=== PATIENT | male | born 1995 | race African-American/Black ===

== ENCOUNTER 2019-05-04 01:28 | Emergency (ER) | payer OTHER ==
[2019-05-04 01:54] VITALS: BP 113/69; PULSE 81; TEMP 98.6; BMI 32.5
--- NOTE | 2019-05-04 02:14 | PDOC ---
History of Present Illness - General Chief Complaint: Penile Drainage Stated Complaint: STI TESTING Time Seen by Provider: 05/04/19 02:03 - History of Present Illness Initial Comments: 05/04/19 02:32 The patient is a 24 year old male with no significant PMH who presents for evaluation for STI testing. The patient reports that he is sexually active with multiple partners and has been noting a strange sensation with urination. He notes that he has had STIs in the past for which he was treated. He otherwise denies fevers, chills, SOB, chest pain, nausea, vomiting, abdominal pain, burning with urination, urinary discharge, or changes with bowel movements. Past History - Past Medical History Allergies/Adverse Reactions: Allergies Allergy/AdvReac Type Severity Reaction Status Date / Time No Known Allergies Allergy Verified 05/04/19 01:53 Home Medications: Ambulatory Orders NK [No Known Home Medication] 05/04/19 - Suicide/Smoking/Psychosocial Hx Smoking History: Never smoked Have you smoked in the past 12 months: No Information on smoking cessation initiated: No Hx Alcohol Use: No Drug/Substance Use Hx: No Review of Systems - Review of Systems Comments:: 05/04/19 02:34 Constitutional: No fevers, chills, fatigue, malaise HEENT: No Rhinorrhea, nasal congestion, visual changes Cardiovascular: No chest pain, syncope, palpitations, lightheadedness Respiratory: No Cough, SOB, Hemoptysis, Gastrointestinal: No Abdominal pain, Nausea, Vomiting, Constipation, Diarrhea, Melena Genitourinary: No Dysuria, Frequency, Urgency, Hesitancy, Hematuria, Flank pain Musculoskeletal: No Myalgia, arthralgia Skin: No rashes, itching, bruising, pallor Neurologic: No Headache, Dizziness, Numbness, Weakness, or Tingling Psychiatric: No Hallucinations. No SI or HI *Physical Exam - Vital Signs Last Vital Signs Temp Pulse Resp BP Pulse Ox 98.6 F 81 20 113/69 100 05/04/19 01:53 05/04/19 01:53 05/04/19 01:53 05/04/19 01:53 05/04/19 01:53 - Physical Exam Comments: 05/04/19 02:35 General Appearance: Nourished. No Apparent Distress HEENT: No Pharyngeal Erythema, Tonsillar Exudate, Tonsillar Erythema Neck: No Cervical Lymphadenopathy Respiratory/Chest: Lungs Clear, Normal Breath Sounds. No Crackles, Rales, Rhonchi, Wheezing Cardiovascular: Regular Rhythm, Regular Rate. No Murmur, Gallops, Rubs Gastrointestinal/Abdominal: Normal Bowel Sounds, Soft. No Guarding, Rebound, Tenderness Genital Exam: Normal External exam. No urethral discharge noted. Normal testicular exam. Musculoskeletal: No CVA Tenderness Extremity: Normal Capillary Refill Integumentary: Normal Color, Dry, Warm Neurologic: Fully Oriented, Alert, Normal Mood/Affect, Normal Response, Medical Decision Making - Medical Decision Making 05/04/19 02:37 The patient is a 24 year old male with no significant PMH who presents for evaluation for STI testing. Given the patient's history and physical exam, we will obtain a UA , G/C, urine culture to evaluate further. The patient declines HIV testing at this time. We will treat with ceftriaxone and azithromycin and continue to monitor and reassess while here in the ED. 05/04/19 02:57 UA is unremarkable. We are comfortable discharging the patient home in stable condition. Patient made aware of impression and plan, return precautions discussed including but not limited to worsening pain or symptoms, fevers, or signs of infection, chest pain, respiratory distress, inability to tolerate oral intake, dehydration, syncope, or neurologic changes. The patient is to follow up with PMD as recommended within 1 week, follow up information provided and the patient will call for an appointment. The patient is to take medications as instructed for duration of time and continue with supportive care , avoid triggers and precipitants. Patient is safe for outpatient follow-up. *DC/Admit/Observation/Transfer Diagnosis at time of Disposition: STD exposure - Discharge Dispostion Disposition: HOME Condition at time of disposition: Stable - Referrals - Patient Instructions Printed Discharge Instructions: Facts About Sexually Transmitted Infections Additional Instructions: 1) Please follow-up with your primary care doctor in the next 2-3 days. Please call tomorrow to schedule a follow up appointment. If you cannot follow up with your doctor within 1 week please return to the Emergency Department for any urgent issues. 2) Your laboratory were normal here in the ER. The results for your STD testing will be available in several days and we will call you with any abnormal results. 3) If you have any worsening of symptoms or any other concerns, please return to the ER immediately. Return if worsening symptoms including fevers, headache, vomiting, visual or hearing disturbances, abdominal pain, chest pain, shortness of breath, syncope, dehydration, inability to take things by mouth/vomiting, altered mental status, or worsening concerning symptoms. 4) You were treated with ceftriaxone and azithromycin here in the ED. - Post Discharge Activity
[2019-05-04] MEDS ORDERED: AZITHROMYCIN 500 MG TABLET PO ONE (02:15)
[2019-05-04 02:30] LABS: PH,URINE 6.5 (5.0-8.0); URINE APPEARANCE CLEAR; URINE BILIRUBIN NEGATIVE (NEGATIVE); URINE COLOR YELLOW; URINE GLUCOSE (UA) NEGATIVE (NEGATIVE); URINE KETONE NEGATIVE (NEGATIVE); URINE LEUK ESTERASE NEGATIVE (NEGATIVE); URINE NITRITE NEGATIVE (NEGATIVE); URINE PROTEIN NEGATIVE (NEGATIVE); URINE UROBILINOGEN 0.2 mg/dL (0.2-1.0)
[2019-05-04] MEDS ORDERED: cefTRIAXone SODIUM 1 GM VIAL ONE (02:47)
[2019-05-04] MEDS ORDERED: AZITHROMYCIN 250 MG TABLET ONE (02:47)
[2019-05-04] MEDS ORDERED: LIDOCAINE HCL 1%, 10 MG/ML (20ML VIAL) ONE (02:48)
--- NOTE | 2019-05-04 04:35 | PDOC ---
Attending Attestation - Resident Resident Name: Braulio Reynoso - ED Attending Attestation I have performed the following: I have examined & evaluated the patient, The case was reviewed & discussed with the resident, I agree w/resident's findings & plan, Exceptions are as noted - HPI HPI: 05/04/19 08:22 24M here with c/o dysuria, Sexually active with multiple partners. - Physicial Exam PE: 05/04/19 08:23 Agree with exam as documented by resident - Medical Decision Making 05/04/19 08:23 F/u ua, send ucx tx empirically for sti dc
== END 2019-05-04 03:05 | disposition home or self-care (01) ==
LOC: JER 01:28
DX: Z20.2 Contact with and (suspected) exposure to infections with a predominantly sexual mode of transmission (principal)
CPT/HCPCS: 36415; 81003; 87086; 87491; 87591; 99282-25

== ENCOUNTER 2019-06-25 20:02 | Emergency (ER) | payer OTHER ==
[2019-06-25 20:11] VITALS: BP 123/64; PULSE 64; TEMP 98; BMI 32.5
[2019-06-25] MEDS ORDERED: AZITHROMYCIN 500 MG TABLET PO ONE (20:12)
--- NOTE | 2019-06-25 20:13 | PDOC ---
Rapid Medical Evaluation Time Seen by Provider: 06/25/19 20:09 Medical Evaluation: Allergies Allergy/AdvReac Type Severity Reaction Status Date / Time No Known Allergies Allergy Verified 06/25/19 20:09 06/25/19 20:12 Pt presents for STD testing. He states that he has an "uncomfortable" feeling when he urinates. States it feels the same as the last time he had an STD. Denies rashes to the area Exam: deferred to provider Orders: STD testing, azithromycin, ceftriaxone Pt to proceed to the ER for further evaluation Discharge Disposition - Diagnosis STD exposure - Referrals - Patient Instructions - Post Discharge Activity
[2019-06-25] MEDS ORDERED: AZITHROMYCIN 250 MG TABLET ONE (20:41)
--- NOTE | 2019-06-25 21:04 | PDOC ---
History of Present Illness - General Chief Complaint: Penile Drainage Stated Complaint: STD TESTING Time Seen by Provider: 06/25/19 20:09 - History of Present Illness Initial Comments: 06/25/19 24-year-old male without comorbidities presents for evaluation of suspected STD. He states he has had unprotected sex with multiple partners and has a fullness in his penis without discharge no systemic symptoms he is refused HIV testing because he does not want to wait for results. Past History - Past Medical History Allergies/Adverse Reactions: Allergies Allergy/AdvReac Type Severity Reaction Status Date / Time No Known Allergies Allergy Verified 06/25/19 20:09 Home Medications: Ambulatory Orders NK [No Known Home Medication] 05/04/19 COPD: No - Immunization History Immunization Up to Date: Yes - Psycho Social/Smoking Cessation Hx Smoking History: Never smoked Have you smoked in the past 12 months: No Hx Alcohol Use: Yes Drug/Substance Use Hx: No Review of Systems - Review of Systems : Yes: See HPI *Physical Exam - Vital Signs Last Vital Signs Temp Pulse Resp BP Pulse Ox 98.0 F 64 18 123/64 98 06/25/19 20:09 06/25/19 20:09 06/25/19 20:09 06/25/19 20:09 06/25/19 20:09 - Physical Exam Comments: 06/25/19 21:03 GENERAL: The patient is awake, alert, and fully oriented, in no acute distress. HEAD: Normal with no signs of trauma. EYES: sclera anicteric, conjunctiva clear. EXTREMITIES: Normal range of motion, no edema. No clubbing or cyanosis. No cords, erythema, or tenderness. NEUROLOGICAL: Cranial nerves II through XII grossly intact. Normal speech, normal gait. PSYCH: Normal mood, normal affect. SKIN: Warm, Dry, normal turgor, no rashes or lesions noted. Medical Decision Making - Medical Decision Making 06/25/19 21:03 Patient was treated for STD's chlamydia and gonorrhea follow-up with primary care physician for HIV testing Discharge - Discharge Information Problems reviewed: Yes Clinical Impression/Diagnosis: STD exposure Condition: Stable Disposition: HOME - Admission No - Follow up/Referral Referrals: Junior Vance MD [Staff Physician] - - Patient Discharge Instructions Patient Printed Discharge Instructions: Chlamydia: The Silent STD, How to Detect and Treat STDs, Facts About Sexually Transmitted Infections Additional Instructions: He was treated for HIV and chlamydia. He was treated for gonorrhea and chlamydia. Follow-up with your primary care physician for HIV testing. Syphilis test was also done but the results will be called to you should they be positive. - Post Discharge Activity
[2019-06-25 21:50] LABS: PH,URINE 5.5 (5.0-8.0); URINE APPEARANCE CLEAR; URINE BILIRUBIN NEGATIVE (NEGATIVE); URINE COLOR YELLOW; URINE GLUCOSE (UA) NEGATIVE (NEGATIVE); URINE KETONE NEGATIVE (NEGATIVE); URINE LEUK ESTERASE NEGATIVE (NEGATIVE); URINE NITRITE NEGATIVE (NEGATIVE); URINE PROTEIN NEGATIVE (NEGATIVE); URINE UROBILINOGEN 0.2 mg/dL (0.2-1.0)
[2019-06-26 11:39] LABS: RPR REACTIVE 1:1 (NONREACTIVE)
[2019-06-26 15:39] LABS: TREPONEMA ANTIBODY REACTIVE (NONREACTIVE)
== END 2019-06-25 21:30 | disposition home or self-care (01) ==
LOC: JERFT 20:02
DX: Z20.2 Contact with and (suspected) exposure to infections with a predominantly sexual mode of transmission (principal); Z72.51 High risk heterosexual behavior
CPT/HCPCS: 36415; 81003; 86593; 86780; 87086; 87389; 87491; 87591; 99282-25